=== PATIENT | male | born 1955 | race African-American/Black ===

== ENCOUNTER 2020-11-22 14:46 | Emergency (ER) | payer MEDICARE ==
[~2020-11-22] VITALS: Ht 170.2 cm; Wt 100.0 kg
[2020-11-22 14:46] VITALS: BP 151/71
--- NOTE | 2020-11-22 15:08 | PHYS DOC ---
Adult General Chief Complaint Chief Complaint: MEDICATION REFILL [facility] HPI Patient is a 65-year-old male presents emergency department stating he needs to obtain a bottle of insulin. Patient states he takes Levemir at home and has plenty to last him. Patient states he also takes lispro at home 40 units in the morning. Patient states he is out of his lispro and is requesting we give him enough insulin to last him until 03 December. Patient denies any other physical complaints or physical concerns. Patient states he is only here to obtain some insulin to use at home. Patient does not know his current blood sugar stated he has not taken his blood glucose today. Patient states his insurance will not allow him to obtain any more insulin until 03 December. (SANDY GALINDO APRN) Review of Systems Review of Systems 14 body systems of review of systems have been reviewed. See HPI for pertinent positives and negative responses, otherwise all other systems are negative, nonpertinent or noncontributory. (SANDY GALINDO APRN) Physical Exam Physical Exam Constitutional: Well developed, well nourished, no acute distress, non-toxic appearance. 65-year-old male in no apparent physical distress, became agitated during physical exam. Would not allow physical exam, states he just wants a bottle of insulin and to go home. Physical examination by appearance only, patient would not allow auscultation or palpation. HENT: Normocephalic, atraumatic, bilateral external ears normal, nose normal. Per visual assessment only. Eyes: Conjunctive to be appear normal, no drainage noted for visual appearance only, patient tracking. Neck: Patient moving head normally. Cardiovascular: No obvious signs of cyanosis. No obvious signs of JVD. Lungs & Thorax: Patient respiratory rate regular, no respiratory distress appreciated visually. No audible abnormal breath sounds appreciated. Skin: Warm, dry, no erythema, no rash. Visual appearance from what was exposed outside of his clothing. Extremities: Patient moving all extremities, no visual cyanosis or edema noted visually. Neurologic: Alert and oriented X 3, normal motor function, patient moving all extremities Psychologic: Affect normal, judgement normal, mood normal. Patient agitated during HPI physical exam. (SANDY GALINDO APRN) Current Patient Data Lab Results Laboratory Tests Test 11/22/20 15:00 Glucose (Fingerstick) 115 mg/dL (70-99) H (SANDY GALINDO APRN) EKG EKG [] (SANDY GALINDO APRN) Radiology/Procedures Radiology/Procedures [] (SANDY GALINDO APRN) Heart Score C/O Chest Pain: No Risk Factors: Risk Factors: DM, Current or recent (<one month) smoker, HTN, HLP, family history of CAD, obesity. Risk Scores: Risk Factors: DM, Current or recent (<one month) smoker, HTN, HLP, family history of CAD, obesity. (SANDY GALINDO APRN) Course & Med Decision Making Course & Med Decision Making Pertinent Labs and Imaging studies reviewed. (See chart for details) 65-year-old male, vital signs reviewed, presents to the emergency department stating he is out of his insulin and would like for this department to give him enough insulin to last until he can get his prescription refilled on 03 December 2020. Performed a bedside fingerstick blood sugar equals 115. Discussed with patient I could offer a prescription for his insulin regimen. Patient became upset, stating he is here for the emergency department or hospital to give him some to use until he can get his failed. Discussed with patient I cannot dispense medications like a pharmacy is able to. I can offer insulin as treatment for acute blood sugar problems, however current blood sugar is 115 and does not indicate immediate treatment at this time. Discussed with patient with the limited physical evaluation he allowed me to perform, it does not appear he is having a life-threatening emergency or emergent condition requiring immediate treatment or hospitalization. I again reiterated how I am able to write a prescription for his insulin regimen if this can help. Patient's states that he only needs me to give him insulin so he can leave. Patient then stood up and eloped from emergency department with steady gait without incident. (SANDY GALINDO APRN) Course & Med Decision Making I oversaw on the above date of service of this patient and discussed the care with the INSPECTION ENGINEER. I agree with the findings, plan of care, and disposition as documented. Electronically signed, Chris Lozano DO (CHRIS LOZANO DO) [employer] Disclaimer Dragon Disclaimer This electronic medical record was generated, in whole or in part, using a voice recognition dictation system. (ADAMOVICH,KEELY DINING HOST) Departure Departure: Impression: Primary Impression: Medication refill Additional Impression: Eloped from emergency department Disposition: 07 AMA/ELOPED/LWBS Condition: GOOD Referrals: JOANA HEWITT MD (PCP) Problem Qualifiers SANDY GALINDO APRN Nov 22, 2020 15:08 CHRIS LOZANO DO Nov 23, 2020 06:31
== END 2020-11-22 15:12 | disposition left against medical advice (07) ==
LOC: ER 14:46
DX: R45.1 Restlessness and agitation (principal)
CPT/HCPCS: 82947; 99283